=== PATIENT | female | born 1970 | race Caucasian/White ===

== ENCOUNTER 2017-06-06 15:43 | Observation (INO) ==
[2017-06-06] MEDS ORDERED: Aspirin 81 MG TAB.CHEW PO ONE (15:52)
[2017-06-06] MEDS ORDERED: Nitroglycerin 0.4 MG TAB.SUBL SL PRN (16:01)
--- NOTE | 2017-06-06 16:03 | Emergency Department Note ---
Disposition Clinical Impression: Chest pain of unknown etiology Disposition: Admitted As Inpatient Condition: Fair Referrals: Priti Chun CNP [Primary Care Provider] - Regis Vega [Family Provider] - Forms: ED Satisfaction Letter Time of Disposition: 17:53 Chest Pain HPI - General Chief Complaint: ED Chest Pain Stated Complaint: Chest heaviness Time Seen by Provider: 06/06/17 15:51 Source: patient Limitations: no limitations Vital Signs Reviewed: Yes Nursing Notes Reviewed: Yes - History of Present Illness HPI Narrative: 47-year-old female complains of acute onset of chest pressure that awoke her from sleep 13 hours ago. Patient states she has nonradiating pressure mid substernal chest, worse with exertion, makes her lightheaded when she over exerts himself with minor activity. Patient states pain is 3/10 and has been lasting up to an hour before going away and coming back. Patient denies any prior cardiac events. Patient is not on any cardiac associated medications. Patient has a history of asthma and anxiety, she states she has been woken from anxiety attacks in the past but none has prevented her from going back to sleep. Family history: Father [facility] at 52. Mother: [facility] 4 weeks ago Severity scale (1-10): 3 - Related Data Home Medications Medication Instructions Recorded Confirmed Albuterol Sulfate [Proair Hfa] 2 puff IH Q4H PRN 06/06/17 06/06/17 Fluticasone Propionate Nasal 50 mcg NS DAILY 06/06/17 06/06/17 [Flonase] Fluticasone/Salmeterol [Advair Hfa 2 puff IH BID 06/06/17 115-21 Mcg Inhaler] Montelukast Sodium [Singulair] 10 mg PO DAILY 06/06/17 06/06/17 Pedi Mv No.79/Ferrous Fumarate 18 mg PO DAILY 06/06/17 06/06/17 [Flintstones with Iron Tab Chew] Allergies Allergy/AdvReac Type Severity Reaction Status Date / Time No Known Allergies Allergy Verified 06/06/17 15:47 All systems ED: reviewed and negative except as stated. Review of Systems: As Per HPI Constitutional: Denies: fever, chills ENT ED: Denies: congestion Cardiovascular: Reports: chest pain Respiratory: Reports: cough Gastrointestinal: Denies: nausea, vomiting, diarrhea Musculoskeletal: Denies: back pain Neurological: Denies: headache, weakness Psychiatric: Reports: anxiety Chest Pain PMH - Past Medical History Medical history: Reports: asthma Psychiatric history: Reports: anxiety - Social History Smoking Status: Never smoker Alcohol use: Reports: none Drug use: Reports: none Physical Exam Vital Signs Temperature 98.6 F 06/06/17 15:44 Pulse Rate 84 06/06/17 15:44 Respiratory Rate 16 06/06/17 15:44 Blood Pressure 169/97 06/06/17 15:44 O2 Sat by Pulse Oximetry 100 06/06/17 15:44 Temperature 98.6 F 06/06/17 15:44 Pulse Rate 84 06/06/17 15:44 Respiratory Rate 16 06/06/17 15:44 Blood Pressure 169/97 06/06/17 15:44 O2 Sat by Pulse Oximetry 100 06/06/17 15:44 Oxygen Delivery Oxygen Delivery Room Air CONSTITUTIONAL: Well-appearing; well-nourished; A&O X 3, in no apparent distress vital signs show hypertension 169/97 and afebrile. HEAD: Normocephalic; atraumatic EYES: PERRL, no scleral icterus NOSE: The nose is normal in appearance without rhinorrhea NECK: No JVD or distended neck veins RESP: Normal chest excursion with respiration; breath sounds clear and equal bilaterally; no wheezes, rhonchi, or rales CARD: Regular rhythm, without murmurs, rub or gallop ABD: Non-distended; non-tender, soft, without rigidity, rebound or guarding,no pulsatile mass CHEST: No pain with palpation SKIN: Normal for age and race; warm and dry without diaphoresis ; no apparent lesions EXTREMITIES: Pulses are 2 plus and equal times 4 extremities, no peripheral edema or calf muscle pain - General Limitations: no limitations General appearance: alert, in no apparent distress Course - Reevaluation(s) Reevaluation #1: Patient received her first round of nitroglycerin which had no effect on her chest pressure. Patient is anxious and is reluctant about having another dose and refused any more doses of nitroglycerin sublingual. Patient was given 0.5 mg of Ativan for her anxiety. Patient's d-dimer came back mildly elevated. The patient's lack response to nitroglycerin, lightheadedness with deep inspiration and increased pressure in her chest I believe at this time patient warrants CTA to rule out PE. Patient agrees to the study. Time: 16:47 Reevaluation #2: No change in patient's chest pressure at 3/10, the patient appears fairly comfortable and is in stable condition. Patient's anxiety is under control currently Time: 17:52 - Consultations Consultation #1: Dr. Nettles the hospitalist as accepted patient for admission to telemetry bed. Time: 17:52 Vital Signs Temperature 98.6 F 06/06/17 15:44 Pulse Rate 84 06/06/17 15:44 Respiratory Rate 16 06/06/17 15:44 Blood Pressure 169/97 06/06/17 15:44 O2 Sat by Pulse Oximetry 100 06/06/17 15:44 Temperature 98.6 F 06/06/17 15:44 Pulse Rate 81 06/06/17 17:14 Respiratory Rate 14 06/06/17 17:14 Blood Pressure 143/93 06/06/17 17:14 O2 Sat by Pulse Oximetry 97 06/06/17 17:14 Oxygen Delivery Oxygen Delivery Room Air Chest Pain - MDM Narrative Medical decision making narrative: Patient presents with acute onset of chest pressure as mid substernal is concerning for possible ACS/NH, there is a component of lightheadedness with exertion, and taking deep breaths on exam seemed to exacerbate her symptoms as well. For this reason consider pulmonary embolism as well. Pt is PE RC negative, she is less than 50, heart rate currently less than 100, O2 saturation room air is 100%, she has no unilateral leg swelling, no history of hemoptysis, no recent surgeries or prior DVT or PE. D-dimer ordered. Since she is low risk it should be negative, and will rule out PE. Chest x-ray will rule out pneumothorax. Patient had a chest x-ray which showed no pulmonary, or cardiac abnormalities, no widening of the mediastinum or obscuration of the aortic knob. Patient has no pulse defects either, which would be concerning for aortic dissection. With no response to treatment with nitroglycerin and an elevated d-dimer patient was sent for CTA of the chest. Patient's other labs are clinically unremarkable. Patient's anemia is improved from previous. Patient has a heart score of 5 CTA chest was negative for PE or any other abnormality. Patient continues to have chest pressure. I spoke and patient and she agrees with my plan for admission for further cardiac workup and trending of troponins. Dr. Nettles the hospitalist as accepted patient for admission to telemetry bed. - Lab Data Lab results reviewed: Yes I reviewed the patient's lab results. Lab results narrative: Short CBC 06/06/17 Range/Units 16:03 WBC 9.8 (4.3-11.1) K/mcL Hgb 11.8 (11.5-15.4) g/dL Hct 39.0 (35.3-44.9) % Plt Count 303 (140-400) K/mcL Neutrophils # 7.6 (1.6-8.9) K/mcL BMP 06/06/17 Range/Units 16:03 Sodium 138 (136-145) mEq/L Potassium 4.3 (3.5-5.1) mEq/L Chloride 105 (98-107) mEq/L Carbon Dioxide 28 (23-29) mEq/L BUN 14 (6-20) mg/dL Creatinine 0.76 (0.60-1.20) mg/dL Glucose 96 (70-105) mg/dL Calcium 9.9 (8.6-10.3) mg/dL Cardiac Enzymes 06/06/17 Range/Units 16:03 Troponin I < 0.03 (< 0.04) ng/mL Result diagrams: 06/06/17 16:03 06/06/17 16:03 Lab Results 06/06/17 06/06/17 06/06/17 Range/Units 16:03 16:03 16:03 WBC 9.8 (4.3-11.1) K/mcL RBC 4.61 (3.82-4.97) M/mcL Hgb 11.8 (11.5-15.4) g/dL Hct 39.0 (35.3-44.9) % MCV 84.6 (83.0-100.0) fL MCH 25.6 L (28.0-33.3) pg MCHC 30.3 L (31.6-35.5) g/dL RDW 17.7 H (11.5-14.5) % Plt Count 303 (140-400) K/mcL MPV 10.5 (9.4-12.4) fL Immature Gran % 0.5 (0-4) % Seg Neutrophils % 78.3 % Lymphocytes % 15.3 % Monocytes % 4.6 % Eosinophils % 0.9 % Basophils % 0.4 % Neutrophils # 7.6 (1.6-8.9) K/mcL Lymphocytes # 1.5 (0.6-4.6) K/mcL Monocytes # 0.5 (0.0-1.3) K/mcL Eosinophils # 0.1 (0.0-0.6) K/mcL Basophils # 0.0 (0.0-0.2) K/mcL PT 12.1 (9.4-12.1) Seconds INR 1.1 D-Dimer 517 H (0-500) ng/mLFEU Sodium 138 (136-145) mEq/L Potassium 4.3 (3.5-5.1) mEq/L Chloride 105 (98-107) mEq/L Carbon Dioxide 28 (23-29) mEq/L BUN 14 (6-20) mg/dL Creatinine 0.76 (0.60-1.20) mg/dL Est GFR ( Amer) > 60 (> 60) Est GFR (Non-Af Amer) > 60 (> 60) BUN/Creatinine Ratio 18 (6-26) Glucose 96 (70-105) mg/dL Calculated Osmolality 286 (280-300) Calcium 9.9 (8.6-10.3) mg/dL Troponin I < 0.03 (< 0.04) ng/mL - Radiology Data Radiology results reviewed: Yes I reviewed the patient's radiology results. Chest X-Ray 06/06/17 15:52 IMPRESSION: 1. No active pulmonary disease. D/ / Reid Bills MD / Reid Bills MD Interpreting Provider: Reid Bills MD Chest X-Ray 06/06/17 15:52 IMPRESSION: 1. No active pulmonary disease. D/ / Reid Bills MD / Reid Bills MD Interpreting Provider: Reid Bills MD Chest CTA 06/06/17 16:46 IMPRESSION: No evidence of pulmonary embolism or acute pulmonary abnormality. D/ / Vijay Pineda MD / Vijay Pineda MD Interpreting Provider: Vijay Pineda MD - EKG Data EKG attestation: Yes I reviewed and interpreted this EKG. EKG results narrative: EKG taken 06/06/2017 at 1547 hrs. shows sinus rhythm at a rate of 76 bpm. EKG shows widespread depression across leads 2, 3, aVF, V4 5 and [address] elevation in aVR. No previous EKG for comparison. EKG to: Shows no change from previous EKG Heart Score - Score History: Moderately Suspicious EKG: Significant ST-Depression Age: 45-65 Risk Factors: 1-2 risk factors Troponin: Less than normal limit HEART Score Total: 5
[2017-06-06 16:21] LABS: Basophils % 0.4 %; Eosinophils # 0.1 K/mcL (0.0-0.6); Eosinophils % 0.9 %; Hemoglobin 11.8 g/dL (11.5-15.4); Immature Granulocytes % 0.5 % (0-4); Lymphocytes # 1.5 K/mcL (0.6-4.6); Lymphocytes % 15.3 %; Mean Corpuscular HGB Conc 30.3 g/dL (31.6-35.5); Mean Corpuscular Hemoglobin 25.6 pg (28.0-33.3); Mean Corpuscular Volume 84.6 fL (83.0-100.0); Mean Platelet Volume 10.5 fL (9.4-12.4); Monocytes # 0.5 K/mcL (0.0-1.3); Monocytes % 4.6 %; Neutrophils # 7.6 K/mcL (1.6-8.9); Platelet Count 303 K/mcL (140-400); Red Blood Count 4.61 M/mcL (3.82-4.97); Red Cell Distribution Width 17.7 % (11.5-14.5); Segmented Neutrophils % 78.3 %
[2017-06-06 16:30] LABS: INR 1.1; Prothrombin Time 12.1 Seconds (9.4-12.1)
[2017-06-06] MEDS ORDERED: *HR* LORazepam 0.5 MG TABLET PO ONE (16:31)
[2017-06-06 16:37] LABS: BUN/Creatinine Ratio 18 (6-26); Blood Urea Nitrogen 14 mg/dL (6-20); Calcium 9.9 mg/dL (8.6-10.3); Carbon Dioxide 28 mEq/L (23-29); Chloride 105 mEq/L (98-107); Glucose 96 mg/dL (70-105); Osmolality,Calculated 286 (280-300); Potassium 4.3 mEq/L (3.5-5.1); Sodium 138 mEq/L (136-145); Troponin I < 0.03 ng/mL (< 0.04); eGFR For African Americans > 60 (> 60); eGFR For Non-African Americans > 60 (> 60)
--- NOTE | 2017-06-06 17:02 | Emergency Department Note ---
Disposition Clinical Impression: Chest pain of unknown etiology Disposition: Admitted As Inpatient Condition: Fair General Adult HPI - General Chief complaint: ED Chest Pain Stated complaint: Chest heaviness Time Seen by Provider: 06/06/17 15:51 Source: patient Limitations: no limitations - History of Present Illness Pain Scale: 3 - Related Data Home Medications Medication Instructions Recorded Confirmed Albuterol Sulfate [Proair Hfa] 2 puff IH Q4H PRN 06/06/17 06/06/17 Fluticasone Propionate Nasal 50 mcg NS DAILY 06/06/17 06/06/17 [Flonase] Fluticasone/Salmeterol [Advair Hfa 2 puff IH BID 06/06/17 115-21 Mcg Inhaler] Montelukast Sodium [Singulair] 10 mg PO DAILY 06/06/17 06/06/17 Pedi Mv No.79/Ferrous Fumarate 18 mg PO DAILY 06/06/17 06/06/17 [Flintstones with Iron Tab Chew] Allergies Allergy/AdvReac Type Severity Reaction Status Date / Time No Known Allergies Allergy Verified 06/06/17 15:47 Constitutional: Denies: fever, chills ENT ED: Denies: congestion Cardiovascular: Reports: chest pain Respiratory: Reports: cough Gastrointestinal: Denies: nausea, vomiting, diarrhea Musculoskeletal: Denies: back pain Neurological: Denies: headache, weakness Psychiatric: Reports: anxiety Past Medical History - Past Medical History Medical history: Reports: asthma Psychiatric history: Reports: anxiety - Social History Smoking Status: Never smoker Smokeless Tobacco Status: No Alcohol use: Reports: none Drug use: Reports: none Physical Exam - General Limitations: no limitations General appearance: alert, in no apparent distress Course Vital Signs Temperature 98.6 F 06/06/17 15:44 Pulse Rate 84 06/06/17 15:44 Respiratory Rate 16 06/06/17 15:44 Blood Pressure 169/97 06/06/17 15:44 O2 Sat by Pulse Oximetry 100 06/06/17 15:44 Temperature 98.9 F 06/06/17 20:37 Pulse Rate 70 06/06/17 20:37 Respiratory Rate 16 06/06/17 20:37 Blood Pressure 138/94 06/06/17 20:37 O2 Sat by Pulse Oximetry 100 06/06/17 20:37 Oxygen Delivery Oxygen Delivery Room Air Medical Decision Making - Lab Data Result diagrams: 06/06/17 16:03 06/06/17 16:03 Lab Results 06/06/17 06/06/17 06/06/17 Range/Units 16:03 16:03 16:03 WBC 9.8 (4.3-11.1) K/mcL RBC 4.61 (3.82-4.97) M/mcL Hgb 11.8 (11.5-15.4) g/dL Hct 39.0 (35.3-44.9) % MCV 84.6 (83.0-100.0) fL MCH 25.6 L (28.0-33.3) pg MCHC 30.3 L (31.6-35.5) g/dL RDW 17.7 H (11.5-14.5) % Plt Count 303 (140-400) K/mcL MPV 10.5 (9.4-12.4) fL Immature Gran % 0.5 (0-4) % Seg Neutrophils % 78.3 % Lymphocytes % 15.3 % Monocytes % 4.6 % Eosinophils % 0.9 % Basophils % 0.4 % Neutrophils # 7.6 (1.6-8.9) K/mcL Lymphocytes # 1.5 (0.6-4.6) K/mcL Monocytes # 0.5 (0.0-1.3) K/mcL Eosinophils # 0.1 (0.0-0.6) K/mcL Basophils # 0.0 (0.0-0.2) K/mcL PT 12.1 (9.4-12.1) Seconds INR 1.1 D-Dimer 517 H (0-500) ng/mLFEU Sodium 138 (136-145) mEq/L Potassium 4.3 (3.5-5.1) mEq/L Chloride 105 (98-107) mEq/L Carbon Dioxide 28 (23-29) mEq/L BUN 14 (6-20) mg/dL Creatinine 0.76 (0.60-1.20) mg/dL Est GFR ( Amer) > 60 (> 60) Est GFR (Non-Af Amer) > 60 (> 60) BUN/Creatinine Ratio 18 (6-26) Glucose 96 (70-105) mg/dL Calculated Osmolality 286 (280-300) Calcium 9.9 (8.6-10.3) mg/dL Troponin I < 0.03 (< 0.04) ng/mL Attestation Statement - Attestation Attestation: I examined this patient and my medical decision-making was reviewed with the Resident Physician. I agree with the documented findings, disposition and treatment plan as described except to the extent set forth below. Face to face time provided Patient evaluated in conjunction with the resident physician Dr. Reed. She c/ o chest pain. Appears in NAD on exam. ECG shows non specific mild ST flattening. D dimer elevated. CTA chest ordered. Patient to be admitted to the medicine service
--- NOTE | 2017-06-06 19:39 | Internal Med History&Physical ---
Date of Encounter: 06/06/17 Time of Encounter: 19:36 Assessment and Plan (1) Chest pain Current visit: Yes Status: Acute Regarding chest pain with some EKG changes of inferolateral wall ischemia troponin so far is negative despite prolonged chest pain for over 12 hours troponin is negative admitted for evaluation. Qualifiers: Chest pain type: precordial pain Qualified Code(s): R07.2 - Precordial pain (2) Abnormal EKG Current visit: Yes Status: Acute Abnormal EKG suggestive of inferior lateral wall ischemia (3) HTN (hypertension) with goal to be determined Current visit: Yes Status: Chronic Chronic resume home medication (4) Asthma Current visit: Yes Status: Chronic History of asthma no active wheezing at this point Qualifiers: Asthma severity: unspecified severity Asthma persistence: unspecified Asthma complication type: unspecified Qualified Code(s): J45.909 - Unspecified asthma, uncomplicated (5) Anxiety Current visit: Yes Status: Chronic Chronic resume home medication Internal Medicine - H&P: HPI Chief complaint: chest pain Admitted From: Emergency Dept Plans for Post Hospital Care: Home History of present illness: Ms. Chi is a 47 year old female Patient with history of asthma, hypertension, anxiety, obesity patient having recurrent chest pain for about 3 months patient woke up more than 12 hours ago with the chest pain that was persistent more than her usual worse with exertion and some lightheadedness . decided to come to the emergency room was given a sublingual nitroglycerin chest is subsided but not resolved troponin so far is negative patient admitted for evaluation EKG shows some subtle inferior lateral wall ST depression suggestive of ischemia. Past Med Surg Social Fam HX - Past Medical History Medical history: asthma, hypertension Psychiatric history: anxiety - Social History Smoking Status: Never smoker Smokeless Tobacco Status: No Alcohol use: none Drug use: none Internal Medicine - H&P: Meds Albuterol Sulfate [Proair Hfa] 2 puff IH Q4H PRN 06/06/17 [History] Fluticasone Propionate Nasal [Flonase] 50 mcg NS DAILY 06/06/17 [History] Fluticasone/Salmeterol [Advair Hfa 115-21 Mcg Inhaler] 2 puff IH BID 06/06/17 [ History] Montelukast Sodium [Singulair] 10 mg PO DAILY 06/06/17 [History] Pedi Mv No.79/Ferrous Fumarate [Flintstones with Iron Tab Chew] 18 mg PO DAILY 06/06/17 [History] 3 Allergy/AdvReac Type Severity Reaction Status Date / Time No Known Allergies Allergy Verified 06/06/17 15:47 All Systems PM: A 10-system review of systems was performed and is negative for pertinent findings except as documented above in the HPI. - Constitutional Constitutional: as per HPI - EENT Eyes: no change in vision, no discharge, no pain, no photophobia Ears: no ear discharge, no ear pain, no tinnitus Nose, mouth and throat: no dysphagia, no nasal discharge, no neck pain, no sore throat - Cardiovascular Cardiovascular ROS IM: chest pain, dyspnea on exertion - Respiratory Respiratory: dyspnea on exertion - Gastrointestinal Gastrointestinal: no abdominal pain, no diarrhea, no hematemesis, no hematochezia, no melena, no nausea, no vomiting - Genitourinary Genitourinary: no change in urinary stream, no dysuria, no flank pain, no hematuria - Musculoskeletal Musculoskeletal ROS IM: no numbness, no tingling - Constitutional Vitals: Temp Pulse Resp BP Pulse Ox 98.6 F 81 14 134/98 97 06/06/17 15:44 06/06/17 17:14 06/06/17 18:42 06/06/17 18:42 06/06/17 17:14 - Head Head exam: Present: atraumatic, normocephalic - Eye Eye exam: Present: PERRL, conjuntiva pink, sclera anicteric Pupils: Present: PERRL - Neck Neck exam general surgery: Present: supple, trachea midline. Absent: lymphadenopathy - Respiratory Respiratory exam: Present: CTAB. Absent: accessory muscle use, rales, rhonchi, wheezes - Cardiovascular Cardiovascular exam: Present: RRR, +S1, +S2. Absent: diastolic murmur, gallop, rubs, systolic murmur - GI/Abdominal GI/Abdominal exam: Present: normal bowel sounds, soft, no peritoneal signs. Absent: distended, tenderness - Extremities Exam Extremities exam: Present: warm, radial pulses palpable and symmetrical. Absent : calf tenderness, cyanotic, pedal edema - Neurological Exam Neurological exam: Present: CN II-XII intact, oriented X3, no focal deficits. Absent: pronater drift, facial droop, speech deficit - Skin Skin exam: Present: dry, intact Internal Med - H&P Results - Labs CBC & Chem 7: 06/06/17 16:03 06/06/17 16:03
[2017-06-06] MEDS ORDERED: traMADol 50 MG TABLET PO PRN (19:43)
[2017-06-06] MEDS ORDERED: Acetaminophen 325 MG TABLET PO PRN (19:43)
[2017-06-06] MEDS ORDERED: Naloxone 0.4 MG/ML INJ IVP PRN (19:43)
[2017-06-06] MEDS ORDERED: 0.9 % Sodium Chloride 1,000 ML IVC SCH (19:45)
[2017-06-06] MEDS ORDERED: clonazePAM 1 MG TABLET PO STA (23:22)
[2017-06-07 07:15] LABS: Alanine Aminotransferase 13 Units/L (7-52); Albumin 4.1 g/dL (3.5-5.7); Albumin/Globulin Ratio 1.3 (1.1-2.2); Alkaline Phosphatase 89 Units/L (34-104); Aspartate Amino Transferase 13 Units/L (13-39); BUN/Creatinine Ratio 23 (6-26); Bilirubin,Total 0.6 mg/dL (0.3-1.0); Blood Urea Nitrogen 14 mg/dL (6-20); Calcium 9.4 mg/dL (8.6-10.3); Carbon Dioxide 25 mEq/L (23-29); Chloride 107 mEq/L (98-107); Chol/HDL Ratio 4.4 (0-4.9); Cholesterol 222 mg/dL (< 200); Globulin 3.1 g/dL (2.4-3.5); Glucose 80 mg/dL (70-105); HDL Cholesterol 51 mg/dL (40-59); LDL Cholesterol,Calculated 151 mg/dL (0-99); Magnesium 2.1 mg/dL (1.6-2.6); Osmolality,Calculated 287 (280-300); Potassium 3.8 mEq/L (3.5-5.1); Sodium 139 mEq/L (136-145); Total Protein 7.2 g/dL (6.4-8.9); Triglycerides 99 mg/dL (< 150); eGFR For African Americans > 60 (> 60); eGFR For Non-African Americans > 60 (> 60)
[2017-06-07] MEDS ORDERED: [UNRECOGNIZED DRUG - REMARK] PO SCH (09:00)
[2017-06-07] MEDS ORDERED: Fluticasone Propionate Nasal 50 MCG/SPRAY BOTTLE NS SCH ×2 (09:00→21:00)
[2017-06-07 15:02] VITALS: BP 127/79
--- NOTE | 2017-06-07 15:41 | Discharge Summary ---
- NOTES TO OUTPATIENT PROVIDER Notes to Outpatient Provider: need to establish with a PCP, discuss antianxiety medication with that provider. F/U with Pulmonary regarding chest burning with Advair Orders not resulted at time of discharge: Pending orders 06/06/17 19:45 NM sallie perf SPECT multi [NM] Routine Date of Encounter: 06/07/17 Time of Encounter: 15:39 - Discharge Diagnosis (1) Abnormal EKG Priority: Primary Status: Acute Comments: Exercise nuclear stress impression exercise ECG is negative for ischemia, the exercise capacity was good. Chest discomfort reported during exercise. Gated EF greater than 70%. Perfusion imaging was negative for ischemia or infarct. (2) Chest pain Priority: Primary Status: Acute Comments: Stress test completed with no infarct or ischemia, echocardiogram also completed Echo with LVEF 65%, normal LV chamber size, wall thickness and function. Mild left ventricular diastolic dysfunction. Normal right ventricular structure and function. Unable to estimate are VSP due to lack of TR jet. No significant valvular dysfunction. All wall segments showed normal motion at rest echo findings Qualifiers: Chest pain type: precordial pain Qualified Code(s): R07.2 - Precordial pain (3) Anxiety Priority: Primary Status: Chronic Comments: Patient requesting a prescription for anti-anxiety medication. I advised her to establish with a PCP and get that through a doctor that can manage it better than I can. (4) Asthma Priority: Primary Status: Chronic Comments: Non-exacerbated, she stopped her Advair because it was causing chest burning. Advised her to follow with pulmonary to see if they want her to restart the Advair or start another agent. Qualifiers: Asthma severity: unspecified severity Asthma persistence: unspecified Asthma complication type: unspecified Qualified Code(s): J45.909 - Unspecified asthma, uncomplicated (5) HTN (hypertension) with goal to be determined Priority: Primary Status: Chronic Comments: Pressure was stable during her stay. Follow with her primary care physician once established Hospital course: Ms. Chi is a 47 year old female with history of asthma, hypertension, anxiety , obesity with recurrent chest pain for about 3 months duration. He woke her 12 hours before admission and was persistent and worse with exertion so she presented to the emergency room she also reported some lightheadedness. A sublingual nitroglycerin was given but the chest pain did not resolve. Troponins were negative. EKG showed some septal inferior lateral wall ST depression suggestive of ischemia. Serial troponins were negative. Stress test and echo were completed. See the assessment and plan for further details of this admission. Discharge discussed with: patient, family, nurse - Time Spent with Patient Total time spent providing and/or coordinating discharge services: Less than 30 minutes - Discharge Medications Home Medications: Albuterol Sulfate [Proair Hfa] 2 puff IH Q4H PRN 06/06/17 [History] Fluticasone Propionate Nasal [Flonase] 50 mcg NS DAILY 06/06/17 [History] Fluticasone/Salmeterol [Advair Hfa 115-21 Mcg Inhaler] 2 puff IH BID 06/06/17 [ History] Montelukast Sodium [Singulair] 10 mg PO DAILY 06/06/17 [History] Pedi Mv No.79/Ferrous Fumarate [Flintstones with Iron Tab Chew] 18 mg PO DAILY 06/06/17 [History] Allergies/Adverse Reactions: 3 Allergy/AdvReac Type Severity Reaction Status Date / Time No Known Allergies Allergy Verified 06/06/17 15:47 Date of admission: 06/06/17 18:34 Primary care physician: Priti Chun, Discharging clinician: Crystal Valdez Anticipated date of discharge: 06/07/17 - Constitutional Vitals: Temp Pulse Resp BP Pulse Ox 97.9 F 87 18 127/79 98 06/07/17 15:00 06/07/17 15:00 06/07/17 15:00 06/07/17 15:00 06/07/17 15:00 General appearance: Present: cooperative, A&O X 3, pleasant, answers questions appropriately - Head Head exam: Present: atraumatic, normocephalic - Eye Eye exam: Present: PERRL, conjuntiva pink, sclera anicteric Pupils: Present: PERRL - Neck Neck exam general surgery: Present: supple, trachea midline. Absent: lymphadenopathy - Respiratory Respiratory exam: Present: CTAB. Absent: accessory muscle use, rales, rhonchi, wheezes - Cardiovascular Cardiovascular exam: Present: RRR, +S1, +S2. Absent: diastolic murmur, gallop, rubs, systolic murmur - GI/Abdominal GI/Abdominal exam: Present: normal bowel sounds, soft, no peritoneal signs. Absent: distended, tenderness - Extremities Exam Extremities exam: Present: warm, radial pulses palpable and symmetrical. Absent : calf tenderness, cyanotic, pedal edema - Neurological Exam Neurological exam: Present: alert, oriented X3, no focal deficits. Absent: pronater drift, facial droop, speech deficit - Skin Skin exam: Present: dry, intact, warm - Patient Status Disposition: Home, Self-Care Condition: Fair Functional capacity at discharge: independent ambulation Overall status at discharge: patient is back to baseline - Discharge Instructions Follow Up With: Priti Chun EMERGENCY ROOM NURSE [Primary Care Provider] - - Diet and Activity Activity: resume usual activities as tolerated Diet: advance to your usual diet
--- NOTE | 2017-06-07 22:41 | Electrocardiograph Report ---
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
--- NOTE | 2017-06-08 14:46 | Electrocardiograph Report ---
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
== END 2017-06-07 16:38 | disposition home or self-care (01) ==
LOC: EMEROO 15:43 → 3BNU 15:43
PROVIDERS: ADMIT Internal Medicine Cardiovascular Disease; ATTEND Registered Nurse